=== PATIENT | male | born 1960 | race Caucasian/White ===

== ENCOUNTER 2018-01-07 21:43 | Inpatient (IN) | payer OTHER ==
[~2018-01-07] VITALS: Ht 175.3 cm; Wt 108.1 kg
[~2018-01-07 21:43] MED LIST: CLON-514 PO; OXYC30TA88 PO; TRAZ-146 PO; [UNRECOGNIZED DRUG - REMARK]
[2018-01-07] MEDS ORDERED: metoclopramide 5 mg/ml inj IV ONE (23:20)
[2018-01-07] MEDS ORDERED: morphine 4 MG/ML inj SYRINge IV ONE (23:20)
[2018-01-08] VITALS (18 sets, daily range): BP systolic 106–154; BP diastolic 49–81
[2018-01-08] MEDS ORDERED: propofol 10mg/ml 20ml vial IV ONE (00:30)
[2018-01-08] MEDS ORDERED: METOPROLOL (01:50)
[2018-01-08] MEDS ORDERED: DULO60CA45 PO (02:25)
[2018-01-08] MEDS ORDERED: ATOR20TA PO (02:25)
[2018-01-08] MEDS ORDERED: ASPI-611 PO (02:25)
[2018-01-08] MEDS ORDERED: normal saline 1000ml 1,000 ML IV SCH (03:06)
[2018-01-08] MEDS ORDERED: acetaminophen 325mg tablet PO PRN ×2 (03:10)
[2018-01-08] MEDS ORDERED: bisacodyl 10mg suppository rectal RC PRN (03:10)
[2018-01-08] MEDS ORDERED: HYDROcodone/acetaminophen 10/325mg tab PO PRN ×2 (03:10→07:55)
[2018-01-08] MEDS ORDERED: morphine 4 MG/ML inj SYRINge IV PRN ×2 (03:10)
[2018-01-08] MEDS ORDERED: HYDROcodone/acetaminophen 5mg/325mg tablet PO PRN (03:10)
[2018-01-08] MEDS ORDERED: mag hydrox/Alum hydrox/simeth 30ml oral suspension PO PRN (03:10)
[2018-01-08] MEDS ORDERED: acetaminophen 650mg rectal suppository RC PRN (03:10)
[2018-01-08] MEDS ORDERED: ondansetron/PF 4mg/2ml inj IV PRN ×2 (03:10→08:15)
[2018-01-08] MEDS ORDERED: HYDROmorphone inj. 0.5 MG/0.5 ML DISP.SYRIN IV PRN ×3 (03:10→08:15)
[2018-01-08] MEDS ORDERED: magnesium hydroxide 30ml (MOM) UD suspension PO PRN (03:10)
[2018-01-08] MEDS ORDERED: metoclopramide 5 mg/ml inj IV PRN (03:10)
[2018-01-08] MEDS ORDERED: diphenhydrAMINE 50 mg/ml inj IV PRN (03:10)
[2018-01-08] MEDS ORDERED: diphenhydrAMINE 25mg capsule PO PRN (03:10)
[2018-01-08] MEDS ORDERED: METOPROLOL PO (04:15)
[2018-01-08] MEDS ORDERED: triamcinolone acetonide 40mg/ml inj ONE (07:12)
[2018-01-08] MEDS ORDERED: ROPIVAcaine 0.5% (5mg/ml) 30ml vial ONE (07:12)
[2018-01-08] MEDS ORDERED: BUPIVAcaine/PF 7.5mg/ml (0.75%) 10ml vial ONE (07:13)
[2018-01-08] MEDS ORDERED: fentaNYL/PF 50MCG/1 ML 2ML syringe ONE (07:17)
[2018-01-08] MEDS ORDERED: LIDOcaine 1%/PF 5ML 10 MG/ML VIAL ONE (07:18)
[2018-01-08] MEDS ORDERED: midazolam 2 mg/2 ml injection ONE ×2 (07:18→08:02)
[2018-01-08] MEDS ORDERED: propofol inj 20 ML IV ONE (07:18)
[2018-01-08] MEDS ORDERED: docusate sod 100mg capsule PO SCH (08:00)
[2018-01-08] MEDS ORDERED: ringers solution, lacted 1,000 ML IV SCH (08:12)
[2018-01-08] MEDS ORDERED: HYDROmorphone 1 mg/ml syringe ONE (08:22)
[2018-01-08] MEDS: HYDROmorphone 1 mg/ml syringe IV PRN ×5 (08:29→08:50)
[2018-01-08] MEDS ORDERED: oxyCODONE/APAP 10/325mg tablet PO ONE (10:10)
[2018-01-08] MEDS ORDERED: temazepam 15mg capsule PO PRN (21:00)
== END 2018-01-08 13:00 | disposition home or self-care (01) | DRG 561 ==
LOC: ER 21:44 → ED HOLD 01-08 03:06 → ORTHO 4S 01-08 04:00
PROVIDERS: ADMIT Family Medicine; ATTEND Family Medicine
PROC: 0RWJXJZ Revision of Synthetic Substitute in Right Shoulder Joint, External Approach (ICD-10-PCS; principal; 2018-01-08 07:31)
DX: T84.028A Dislocation of other internal joint prosthesis, initial encounter (principal); Z96.611 Presence of right artificial shoulder joint; I10 Essential (primary) hypertension; F32.9 Major depressive disorder, single episode, unspecified; F41.9 Anxiety disorder, unspecified; X58.XXXA Exposure to other specified factors, initial encounter; Z88.8 Allergy status to other drugs, medicaments and biological substances; Z79.82 Long term (current) use of aspirin; Z79.899 Other long term (current) drug therapy; Z85.89 Personal history of malignant neoplasm of other organs and systems; Y93.89 Activity, other specified; Y92.89 Other specified places as the place of occurrence of the external cause
CPT/HCPCS: 23650; 99285; Z7506; 73020; 73030; 76000; 87070; 99152; 99153; A4565; A4620; J1170; J2001; J2250; J2270; J2704; J2765; J2795; J3010; J3301; J3490; J7030; J7120; L3650

== ENCOUNTER 2018-01-14 14:51 | Inpatient (IN) | payer OTHER ==
[~2018-01-14] VITALS: Ht 175.3 cm; Wt 105.9 kg
[2018-01-14] VITALS (20 sets, daily range): BP systolic 97–153; BP diastolic 47–91
[~2018-01-14 14:51] MED LIST changes: +METOPROLOL PO; -[UNRECOGNIZED DRUG - REMARK]
[2018-01-14] MEDS ORDERED: vancomycin/NS 1 GM ADD-VANTAGE 250 ML IV ONE (15:25)
[2018-01-14] MEDS ORDERED: ceFAZolin 1GM/D5W- ADD-VANTAGE 50 ML IV SCH (16:00)
[2018-01-14] MEDS: ringers solution, lacted 1,000 ML IV SCH (16:06)
[2018-01-14] MEDS: oxyCODONE IR 5mg (immed. release) tablet PO PRN (16:07)
[2018-01-14 16:30] LABS: BASOPHILS % (AUTO) 0.4 % (0-1); EOSINOPHILS # (AUTO) 0.3 X10'3 (0-0.9); EOSINOPHILS % (AUTO) 4.9 % (0-6); HEMATOCRIT 34.9 % (42.0-52.0); LYMPHOCYTES # (AUTO) 1.4 X10'3 (1.1-4.8); LYMPHOCYTES % (AUTO) 25.3 % (21-51); MEAN CORPUSCULAR HEMOGLOBIN 30.7 PG (27.0-31.0); MEAN CORPUSCULAR HGB CONC 34.3 % (33.0-36.5); MEAN CORPUSCULAR VOLUME 89.7 FL (78-98); MEAN PLATELET VOLUME 6.4 FL (7.4-10.4); MONOCYTES # (AUTO) 0.6 X10'3 (0-0.9); MONOCYTES % (AUTO) 9.8 % (2-12); NEUTROPHILS # (AUTO) 3.4 X10'3 (1.8-7.7); NEUTROPHILS % (AUTO) 59.6 % (42-75); PLATELET COUNT 391 X10'3 (140-440); RED CELL DISTRIBUTION WIDTH 12.9 % (11.5-14.5); WHITE BLOOD COUNT 5.7 X10'3 (4.5-11.0)
[2018-01-14] MEDS ORDERED: vancomycin 1,000mg inj ONE (16:31)
[2018-01-14 16:44] LABS: ALANINE AMINOTRANSFERASE 19 U/L (12-78); ALBUMIN 3.1 G/DL (3.4-5.0); ALBUMIN/GLOBULIN RATIO 0.9 (1.1-1.5); ALKALINE PHOSPHATASE 98 IU/L (46-116); ANION GAP 7 (8-16); ASPARTATE AMINO TRANSFERASE 17 U/L (10-37); BILIRUBIN,TOTAL 0.3 MG/DL (0.1-1.0); BLOOD UREA NITROGEN 14 MG/DL (7-18); BUN/CREATININE RATIO 17.1 (5.4-32.0); CALCIUM 8.6 MG/DL (8.5-10.1); CHLORIDE 102 MMOL/L (99-107); CREATININE 0.82 MG/DL (0.60-1.10); GLUCOSE 95 MG/DL (70-104); SODIUM 138 MMOL/L (135-145); TOTAL CARBON DIOXIDE 28.6 MMOL/L (24-32); TOTAL PROTEIN 6.6 G/DL (6.4-8.2); eGFR > 90 ML/MIN
[2018-01-14] MEDS ORDERED: ringers solution, lacted 1,000 ML IV SCH (16:47)
[2018-01-14] MEDS ORDERED: proCHLORperazine 10 MG/2 ml inj IV PRN (16:50)
[2018-01-14] MEDS ORDERED: ondansetron/PF 4mg/2ml inj IV PRN ×2 (16:50→18:45)
[2018-01-14] MEDS ORDERED: meperidine/PF 25mg/ml syringe IV PRN ×3 (16:50)
[2018-01-14] MEDS ORDERED: morphine 4 MG/ML inj SYRINge IV PRN ×2 (16:50)
[2018-01-14] MEDS ORDERED: sevoflurane 250ml liquid IH ONE (16:51)
[2018-01-14] MEDS ORDERED: fentaNYL /PF 50mcg/ml 5ml ampule ONE (16:55)
[2018-01-14] MEDS ORDERED: midazolam 2 mg/2 ml injection ONE (16:55)
[2018-01-14] MEDS ORDERED: ketorolac trometh. 30mg/ml inj. ONE (16:56)
[2018-01-14] MEDS ORDERED: ROPIVAcaine 0.5% (5mg/ml) 30ml vial ONE (16:56)
[2018-01-14] MEDS ORDERED: propofol inj 20 ML IV ONE (17:08)
[2018-01-14] MEDS ORDERED: rocuronium 10mg/ml inj IV ONE (17:08)
[2018-01-14] MEDS ORDERED: TRANEXAMIC ACID IV ONE ×4 (17:20)
[2018-01-14] MEDS ORDERED: NORMAL SALINE IV ONE ×4 (17:20)
[2018-01-14] MEDS ORDERED: fentaNYL/PF 50MCG/1 ML 2ML syringe ONE (17:40)
[2018-01-14] MEDS ORDERED: diphenhydrAMINE 25mg capsule PO PRN ×2 (18:45)
[2018-01-14] MEDS ORDERED: acetaminophen 325mg tablet PO PRN (18:45)
[2018-01-14] MEDS ORDERED: bisacodyl 10mg suppository rectal RC PRN (18:45)
[2018-01-14] MEDS ORDERED: magnesium hydroxide 30ml (MOM) UD suspension PO PRN (18:45)
[2018-01-14] MEDS ORDERED: HYDROmorphone 1 mg/ml syringe IV PRN ×2 (18:45)
[2018-01-14] MEDS: ketorolac tromethamine 15mg/ml inj. IV SCH (19:58)
[2018-01-14] MEDS ORDERED: vancomycin/NS 1 GM ADD-VANTAGE 250 ML IV SCH (20:00)
[2018-01-14] MEDS: potassium cl 20mEq in 1/2 NS 1,000 ML IV SCH (20:40)
[2018-01-14] MEDS ORDERED: sennosides 8.6mg tablet PO SCH (21:00)
[2018-01-14] MEDS: acetaminophen 325mg tablet PO SCH (21:05)
[2018-01-14] MEDS: gabapentin 300mg capsule PO SCH (21:06)
[2018-01-14] MEDS ORDERED: tranexamic acid inj. 1,060 MG in normal saline 100ml IV soln 100 ML IV ONE (22:00)
[2018-01-14] MEDS: clonazePAM 1mg tablet PO SCH (22:25)
[2018-01-15] MEDS: ceFAZolin 1GM/D5W- ADD-VANTAGE 50 ML IV SCH ×2 (00:26→08:46)
[2018-01-15] MEDS: ringers solution, lacted 1,000 ML IV SCH (01:25)
[2018-01-15 02:00] VITALS: BP 91/47
[2018-01-15] MEDS: ketorolac tromethamine 15mg/ml inj. IV SCH ×2 (02:36→08:46)
[2018-01-15] MEDS: potassium cl 20mEq in 1/2 NS 1,000 ML IV SCH ×2 (02:43→04:37)
[2018-01-15] MEDS: acetaminophen 325mg tablet PO SCH ×2 (02:46→08:48)
[2018-01-15] MEDS: oxyCODONE IR 5mg (immed. release) tablet PO PRN ×2 (02:55→08:46)
[2018-01-15 06:00] VITALS: BP 121/62
[2018-01-15 06:29] LABS: BASOPHILS % (AUTO) 0.4 % (0-1); EOSINOPHILS # (AUTO) 0.3 X10'3 (0-0.9); EOSINOPHILS % (AUTO) 5.2 % (0-6); HEMATOCRIT 30.5 % (42.0-52.0); HEMOGLOBIN 10.5 g/dl (14.0-17.9); LYMPHOCYTES % (AUTO) 19.7 % (21-51); MEAN CORPUSCULAR HEMOGLOBIN 30.9 PG (27.0-31.0); MEAN CORPUSCULAR HGB CONC 34.3 % (33.0-36.5); MEAN CORPUSCULAR VOLUME 89.9 FL (78-98); MEAN PLATELET VOLUME 6.4 FL (7.4-10.4); MONOCYTES # (AUTO) 0.6 X10'3 (0-0.9); MONOCYTES % (AUTO) 12.5 % (2-12); NEUTROPHILS # (AUTO) 3.1 X10'3 (1.8-7.7); NEUTROPHILS % (AUTO) 62.2 % (42-75); PLATELET COUNT 318 X10'3 (140-440); RED BLOOD COUNT 3.39 X10'6 (4.70-6.10); RED CELL DISTRIBUTION WIDTH 13.3 % (11.5-14.5); WHITE BLOOD COUNT 4.9 X10'3 (4.5-11.0)
[2018-01-15 06:46] LABS: ANION GAP 4 (8-16); CHLORIDE 109 MMOL/L (99-107); POTASSIUM 3.7 MMOL/L (3.5-5.1); SODIUM 141 MMOL/L (135-145); TOTAL CARBON DIOXIDE 28.4 MMOL/L (24-32)
[2018-01-15] MEDS ORDERED: aspirin 325mg tablet PO SCH (08:30)
[2018-01-15] MEDS: gabapentin 300mg capsule PO SCH (08:46)
[2018-01-15] MEDS: clonazePAM 1mg tablet PO SCH (08:46)
[2018-01-15] MEDS ORDERED: celeCOXIB 100mg capsule PO SCH (20:00)
[2018-01-16] MEDS ORDERED: acetaminophen 325mg tablet PO PRN (18:45)
== END 2018-01-15 10:43 | disposition home or self-care (01) | DRG 483 ==
LOC: ORTHO 4S 14:51
PROVIDERS: ADMIT Orthopaedic Surgery; ATTEND Orthopaedic Surgery
PROC: 0RPJ0JZ Removal of Synthetic Substitute from Right Shoulder Joint, Open Approach (ICD-10-PCS; 2018-01-14)
PROC: 0RRJ00Z Replacement of Right Shoulder Joint with Reverse Ball and Socket Synthetic Substitute, Open Approach (ICD-10-PCS; principal; 2018-01-14 16:51)
DX: T84.028A Dislocation of other internal joint prosthesis, initial encounter (principal); D62 Acute posthemorrhagic anemia; K21.9 Gastro-esophageal reflux disease without esophagitis; F32.9 Major depressive disorder, single episode, unspecified; F41.9 Anxiety disorder, unspecified; I25.119 Atherosclerotic heart disease of native coronary artery with unspecified angina pectoris; M19.011 Primary osteoarthritis, right shoulder; Y83.8 Other surgical procedures as the cause of abnormal reaction of the patient, or of later complication, without mention of misadventure at the time of the procedure; Z96.611 Presence of right artificial shoulder joint; Z79.899 Other long term (current) drug therapy; Y92.89 Other specified places as the place of occurrence of the external cause
CPT/HCPCS: 36415; 80051; 80053; 85025; 87070; 87075; 97110; 97162; 97530; A6255; A7000; J0690; J1170; J1885; J2175; J2250; J2704; J2795; J3010; J3370; J7030; J7040; J7120

== ENCOUNTER 2018-01-18 11:11 | Inpatient (IN) | payer OTHER, MEDICARE ==
[~2018-01-18] VITALS: Ht 175.3 cm; Wt 105.0 kg
[2018-01-18 12:26] LABS: BASOPHILS % (AUTO) 0.6 % (0-1); EOSINOPHILS # (AUTO) 0.2 X10'3 (0-0.9); EOSINOPHILS % (AUTO) 4.3 % (0-6); HEMATOCRIT 36.1 % (42.0-52.0); HEMOGLOBIN 12.2 g/dl (14.0-17.9); LYMPHOCYTES % (AUTO) 18.5 % (21-51); MEAN CORPUSCULAR HEMOGLOBIN 30.8 PG (27.0-31.0); MEAN CORPUSCULAR HGB CONC 33.8 % (33.0-36.5); MEAN CORPUSCULAR VOLUME 91.1 FL (78-98); MEAN PLATELET VOLUME 7.1 FL (7.4-10.4); MONOCYTES # (AUTO) 0.8 X10'3 (0-0.9); MONOCYTES % (AUTO) 14.1 % (2-12); NEUTROPHILS # (AUTO) 3.5 X10'3 (1.8-7.7); NEUTROPHILS % (AUTO) 62.5 % (42-75); PLATELET COUNT 352 X10'3 (140-440); RED BLOOD COUNT 3.97 X10'6 (4.70-6.10); RED CELL DISTRIBUTION WIDTH 13.1 % (11.5-14.5); WHITE BLOOD COUNT 5.5 X10'3 (4.5-11.0)
[2018-01-18 12:39] LABS: PARTIAL THROMBOPLASTIN TIME 31 SECONDS (22-32)
[2018-01-18] MEDS ORDERED: vancomycin/NS 1 GM ADD-VANTAGE 250 ML IV ONE (12:55)
[2018-01-18] MEDS ORDERED: epiNEPHrine inj 0.3 MG in LIDOcaine 1% 30ml vial 29.7 ML IJ ONE ×4 (12:55)
[2018-01-18 12:56] LABS: ALANINE AMINOTRANSFERASE 17 U/L (12-78); ALBUMIN 3.1 G/DL (3.4-5.0); ALBUMIN/GLOBULIN RATIO 0.8 (1.1-1.5); ALKALINE PHOSPHATASE 98 IU/L (46-116); ANION GAP 9 (8-16); ASPARTATE AMINO TRANSFERASE 14 U/L (10-37); BILIRUBIN,TOTAL 0.3 MG/DL (0.1-1.0); BLOOD UREA NITROGEN 14 MG/DL (7-18); BUN/CREATININE RATIO 18.7 (5.4-32.0); CALCIUM 8.8 MG/DL (8.5-10.1); CHLORIDE 103 MMOL/L (99-107); CREATININE 0.75 MG/DL (0.60-1.10); GLUCOSE 116 MG/DL (70-104); SODIUM 138 MMOL/L (135-145); TOTAL CARBON DIOXIDE 25.8 MMOL/L (24-32); TOTAL PROTEIN 7.1 G/DL (6.4-8.2); eGFR > 90 ML/MIN
[2018-01-18] MEDS ORDERED: LIDOcaine 0.5% W/epiNEPHrine 1:200,000 50ml vial IJ ONE (13:00)
[2018-01-18] MEDS ORDERED: LIDOcaine 1% w/EPI 1:100,000 30ml vial (MDV) IJ ONE (13:05)
[2018-01-18] MEDS ORDERED: ondansetron/PF 4mg/2ml inj IV PRN (14:40)
[2018-01-18] MEDS ORDERED: diphenhydrAMINE 25mg capsule PO PRN ×2 (14:40)
[2018-01-18] MEDS ORDERED: HYDROmorphone 1 mg/ml syringe IV PRN (14:40)
[2018-01-18] MEDS ORDERED: oxyCODONE IR 5mg (immed. release) tablet PO PRN (14:40)
[2018-01-18] MEDS ORDERED: bisacodyl 10mg suppository rectal RC PRN (14:40)
[2018-01-18] MEDS ORDERED: acetaminophen 325mg tablet PO PRN (14:40)
[2018-01-18] MEDS ORDERED: magnesium hydroxide 30ml (MOM) UD suspension PO PRN (14:40)
[2018-01-18 14:58] LABS: BFAPPEAR BLOODY
[2018-01-18 14:59] LABS: BFCOLOR RED; BFVOLUME 3 ML
[2018-01-18 15:30] LABS: LYMPHOCYTES,BODY FLUID 5 %; MONOCYTES,BODY FLUID 2 %; NEUTROPHILS,BODY FLUID 93 %
[2018-01-18 15:31] LABS: BF WBC COUNT 5470 /CU MM (0-1000)
[2018-01-18 15:32] LABS: BF RBC COUNT 195000 /CU MM
[2018-01-18] MEDS: HYDROmorphone 1 mg/ml syringe IV PRN ×2 (15:58→23:01)
[2018-01-18] MEDS ORDERED: oxyCODONE IR 5mg (immed. release) tablet PO ONE (17:55)
[2018-01-18] MEDS ORDERED: vancomycin/NS 1 GM ADD-VANTAGE 250 ML IV SCH (20:00)
[2018-01-18] MEDS: clonazePAM 1mg tablet PO SCH (20:41)
[2018-01-18] MEDS: acetaminophen 325mg tablet PO SCH (20:41)
[2018-01-18] MEDS: ketorolac tromethamine 15mg/ml inj. IV SCH (20:41)
[2018-01-18] MEDS: gabapentin 300mg capsule PO SCH (20:42)
[2018-01-18] MEDS: traZODone 50mg tablet PO SCH (20:42)
[2018-01-18] MEDS: OLANZapine 5mg rapidly disint. tablet PO SCH (20:42)
[2018-01-18] MEDS: sennosides 8.6mg tablet PO SCH (20:42)
[2018-01-18 22:00] VITALS: BP 132/72
[2018-01-18] MEDS: oxyCODONE IR 5mg (immed. release) tablet PO PRN (22:09)
[2018-01-18] MEDS: potassium cl 20mEq in 1/2 NS 1,000 ML IV SCH (22:39)
[2018-01-19] MEDS: acetaminophen 325mg tablet PO SCH ×4 (02:13→19:57)
[2018-01-19] MEDS: ketorolac tromethamine 15mg/ml inj. IV SCH ×3 (02:14→13:43)
[2018-01-19] MEDS: oxyCODONE IR 5mg (immed. release) tablet PO PRN ×4 (02:17→17:56)
[2018-01-19 06:00] VITALS: BP 102/62
[2018-01-19 06:07] LABS: HEMATOCRIT 32.4 % (42.0-52.0); MEAN CORPUSCULAR HEMOGLOBIN 30.3 PG (27.0-31.0); MEAN CORPUSCULAR HGB CONC 33.8 % (33.0-36.5); MEAN CORPUSCULAR VOLUME 89.7 FL (78-98); MEAN PLATELET VOLUME 7.1 FL (7.4-10.4); PLATELET COUNT 303 X10'3 (140-440); RED BLOOD COUNT 3.62 X10'6 (4.70-6.10); RED CELL DISTRIBUTION WIDTH 13.3 % (11.5-14.5); WHITE BLOOD COUNT 2.6 X10'3 (4.5-11.0)
[2018-01-19 06:32] LABS: ANION GAP 6 (8-16); CHLORIDE 107 MMOL/L (99-107); POTASSIUM 4.1 MMOL/L (3.5-5.1); SODIUM 142 MMOL/L (135-145); TOTAL CARBON DIOXIDE 29.2 MMOL/L (24-32)
[2018-01-19] MEDS: potassium cl 20mEq in 1/2 NS 1,000 ML IV SCH ×3 (06:39→22:39)
[2018-01-19 07:41] LABS: BASOPHILS % (MANUAL) 1 % (0-1); EOSINOPHILS % (MANUAL) 3 % (0-6); LYMPHOCYTES % (MANUAL) 37 % (21-51); MONOCYTES % (MANUAL) 15 % (2-12); NEUTROPHILS % (MANUAL) 44 % (42-75); PLATELET ESTIMATE NORMAL; TOTAL CELLS COUNTED 100
[2018-01-19] MEDS ORDERED: CLON2TAB PO (08:09)
[2018-01-19] MEDS ORDERED: OLAN10TA3 PO (08:09)
[2018-01-19] MEDS ORDERED: TRAZ-146 PO (08:09)
[2018-01-19] MEDS ORDERED: OXYC-658 PO (08:09)
[2018-01-19] MEDS: OLANZapine 5mg rapidly disint. tablet PO SCH ×2 (09:18→19:55)
[2018-01-19] MEDS: aspirin 325mg tablet PO SCH (09:18)
[2018-01-19] MEDS: gabapentin 300mg capsule PO SCH ×3 (09:18→19:55)
[2018-01-19] MEDS: clonazePAM 1mg tablet PO SCH ×2 (09:19→19:57)
[2018-01-19] MEDS: HYDROmorphone 1 mg/ml syringe IV PRN ×2 (10:56→16:57)
[2018-01-19 18:00] VITALS: BP 114/58
[2018-01-19] MEDS: traZODone 50mg tablet PO SCH (19:54)
[2018-01-19] MEDS: celeCOXIB 100mg capsule PO SCH (19:55)
[2018-01-19] MEDS: sennosides 8.6mg tablet PO SCH (19:55)
[2018-01-19 22:00] VITALS: BP 101/56
[2018-01-20] MEDS: acetaminophen 325mg tablet PO SCH ×3 (01:09→16:27)
[2018-01-20] MEDS: oxyCODONE IR 5mg (immed. release) tablet PO PRN ×4 (02:25→16:28)
[2018-01-20 05:00] VITALS: BP 123/66
[2018-01-20 05:53] LABS: BASOPHILS % (AUTO) 0.6 % (0-1); EOSINOPHILS # (AUTO) 0.3 X10'3 (0-0.9); EOSINOPHILS % (AUTO) 9.2 % (0-6); HEMATOCRIT 36.1 % (42.0-52.0); HEMOGLOBIN 12.1 g/dl (14.0-17.9); LYMPHOCYTES # (AUTO) 1.2 X10'3 (1.1-4.8); LYMPHOCYTES % (AUTO) 34.2 % (21-51); MEAN CORPUSCULAR HEMOGLOBIN 30.5 PG (27.0-31.0); MEAN CORPUSCULAR HGB CONC 33.6 % (33.0-36.5); MEAN CORPUSCULAR VOLUME 90.9 FL (78-98); MEAN PLATELET VOLUME 6.9 FL (7.4-10.4); MONOCYTES # (AUTO) 0.7 X10'3 (0-0.9); MONOCYTES % (AUTO) 18.9 % (2-12); NEUTROPHILS # (AUTO) 1.3 X10'3 (1.8-7.7); NEUTROPHILS % (AUTO) 37.1 % (42-75); PLATELET COUNT 331 X10'3 (140-440); RED BLOOD COUNT 3.97 X10'6 (4.70-6.10); RED CELL DISTRIBUTION WIDTH 13.5 % (11.5-14.5); WHITE BLOOD COUNT 3.5 X10'3 (4.5-11.0)
[2018-01-20] MEDS: potassium cl 20mEq in 1/2 NS 1,000 ML IV SCH (06:39)
[2018-01-20] MEDS: celeCOXIB 100mg capsule PO SCH ×2 (07:59→19:22)
[2018-01-20] MEDS: clonazePAM 1mg tablet PO SCH ×2 (08:00→19:23)
[2018-01-20] MEDS: gabapentin 300mg capsule PO SCH ×3 (08:00→20:50)
[2018-01-20] MEDS: OLANZapine 5mg rapidly disint. tablet PO SCH ×2 (08:00→19:23)
[2018-01-20] MEDS: aspirin 325mg tablet PO SCH (08:00)
[2018-01-20 10:00] VITALS: BP 128/56
[2018-01-20 10:14] LABS: TOTAL CELLS COUNTED 100
[2018-01-20 10:15] LABS: PLATELET ESTIMATE NORMAL
[2018-01-20] MEDS ORDERED: acetaminophen 325mg tablet PO PRN (14:40)
[2018-01-20 18:00] VITALS: BP 136/62
[2018-01-20] MEDS ORDERED: mag hydrox/Alum hydrox/simeth 30ml oral suspension PO ONE (20:00)
[2018-01-20] MEDS: sennosides 8.6mg tablet PO SCH (20:50)
[2018-01-20] MEDS: traZODone 50mg tablet PO SCH (20:50)
[2018-01-20 22:00] VITALS: BP 126/71
[2018-01-21] MEDS: oxyCODONE IR 5mg (immed. release) tablet PO PRN ×2 (02:41→09:30)
[2018-01-21 05:00] VITALS: BP 138/74
[2018-01-21 05:56] LABS: BASOPHILS % (AUTO) 0.5 % (0-1); EOSINOPHILS # (AUTO) 0.3 X10'3 (0-0.9); EOSINOPHILS % (AUTO) 6.7 % (0-6); HEMATOCRIT 33.7 % (42.0-52.0); HEMOGLOBIN 11.5 g/dl (14.0-17.9); LYMPHOCYTES # (AUTO) 1.3 X10'3 (1.1-4.8); LYMPHOCYTES % (AUTO) 32.3 % (21-51); MEAN CORPUSCULAR HEMOGLOBIN 30.6 PG (27.0-31.0); MEAN PLATELET VOLUME 7.1 FL (7.4-10.4); MONOCYTES # (AUTO) 0.6 X10'3 (0-0.9); MONOCYTES % (AUTO) 14.6 % (2-12); NEUTROPHILS # (AUTO) 1.9 X10'3 (1.8-7.7); NEUTROPHILS % (AUTO) 45.9 % (42-75); PLATELET COUNT 335 X10'3 (140-440); RED BLOOD COUNT 3.75 X10'6 (4.70-6.10); RED CELL DISTRIBUTION WIDTH 13.4 % (11.5-14.5); WHITE BLOOD COUNT 4.1 X10'3 (4.5-11.0)
[2018-01-21] MEDS ORDERED: HYDROmorphone 2mg tablet PO PRN (06:40)
[2018-01-21] MEDS ORDERED: CLIN300C70 PO (08:35)
[2018-01-21] MEDS: aspirin 325mg tablet PO SCH (09:30)
[2018-01-21] MEDS ORDERED: VANCOMYCIN LEVEL IV ONE (09:30)
[2018-01-21] MEDS: clonazePAM 1mg tablet PO SCH (09:31)
[2018-01-21] MEDS: gabapentin 300mg capsule PO SCH (09:32)
[2018-01-21] MEDS: celeCOXIB 100mg capsule PO SCH (09:32)
[2018-01-21] MEDS: OLANZapine 5mg rapidly disint. tablet PO SCH (09:32)
== END 2018-01-21 10:45 | disposition home or self-care (01) | DRG 863 ==
LOC: ER 11:12 → ED HOLD 14:39 → EDBEDREQ 16:22 → ORTHO 4S 17:13
PROVIDERS: ADMIT Orthopaedic Surgery; ATTEND Orthopaedic Surgery
PROC: 0R9J3ZX Drainage of Right Shoulder Joint, Percutaneous Approach, Diagnostic (ICD-10-PCS; principal; 2018-01-18)
DX: T81.4XXA Infection following a procedure, initial encounter (principal); L03.113 Cellulitis of right upper limb; M96.840 Postprocedural hematoma of a musculoskeletal structure following a musculoskeletal system procedure; K21.9 Gastro-esophageal reflux disease without esophagitis; F41.9 Anxiety disorder, unspecified; F32.9 Major depressive disorder, single episode, unspecified; I25.10 Atherosclerotic heart disease of native coronary artery without angina pectoris; D64.9 Anemia, unspecified; Y83.8 Other surgical procedures as the cause of abnormal reaction of the patient, or of later complication, without mention of misadventure at the time of the procedure; Z88.8 Allergy status to other drugs, medicaments and biological substances; Z79.899 Other long term (current) drug therapy; Y92.89 Other specified places as the place of occurrence of the external cause
CPT/HCPCS: 36415; 73030; 80051; 80053; 80202; 83605; 84145; 85025; 85610; 85651; 85730; 86140; 87040; 87070; 87077; 87186; 89051; 96365; 99285; A6258; A6449; J0171; J1170; J1885; J3370; J3490

== ENCOUNTER 2020-09-18 20:30 | Emergency (ER) | payer MEDICARE, OTHER ==
[~2020-09-18] VITALS: Ht 175.3 cm; Wt 88.9 kg
[~2020-09-18 20:30] MED LIST changes: -CLON-514 PO; +CLON2TAB PO; -METOPROLOL PO; +OLAN10TA3 PO; +OXYC-658 PO; -OXYC30TA88 PO; -TRAZ-146 PO; +TRAZ-256 PO
--- NOTE | 2020-09-18 21:02 | NUR ---
Patient reports englarged prostate and has been seeing primary care. Patient reports the pain has become intolerable tonight. Patient reports difficulty peeing. Patient reports going to [facility] a couple days ago and left AMA. Patient is very anxious, irratic, and all over the place. patient is GCS 15. Patient reports voiding appoximately 6-7 hours ago with just dribble. RN examined area and no swelling note.
[2020-09-18] MEDS ORDERED: OLANZapine 2.5MG tablet PO STA (22:23)
[2020-09-18] MEDS ORDERED: LORazepam 1 MG tablet PO ONE (22:25)
[2020-09-18 22:41] LABS: BASOPHILS % (AUTO) 0.4 % (0-1); EOSINOPHILS # (AUTO) 0.1 X10'3 (0-0.9); EOSINOPHILS % (AUTO) 0.8 % (0-6); HEMATOCRIT 47.7 % (42.0-52.0); HEMOGLOBIN 15.8 g/dl (14.0-17.9); LYMPHOCYTES % (AUTO) 22.3 % (21-51); MEAN CORPUSCULAR HEMOGLOBIN 31.1 PG (27.0-31.0); MEAN CORPUSCULAR HGB CONC 33.2 g/dL (33.0-36.5); MEAN CORPUSCULAR VOLUME 93.6 FL (78-98); MEAN PLATELET VOLUME 7.9 FL (7.4-10.4); MONOCYTES # (AUTO) 1.1 X10'3 (0-0.9); MONOCYTES % (AUTO) 12.2 % (2-12); NEUTROPHILS # (AUTO) 5.6 X10'3 (1.8-7.7); NEUTROPHILS % (AUTO) 64.3 % (42-75); PLATELET COUNT 278 X10'3 (140-440); RED BLOOD COUNT 5.09 X10'6 (4.70-6.10); RED CELL DISTRIBUTION WIDTH 13.6 % (11.5-14.5); WHITE BLOOD COUNT 8.8 X10'3 (4.5-11.0)
--- NOTE | 2020-09-18 22:48 | NUR ---
patient has rambling speech upon arrival to ED [facility] , but is otherwise cooperative.
[2020-09-18 22:54] LABS: ALANINE AMINOTRANSFERASE 60 U/L (12-78); ALBUMIN 4.1 G/DL (3.4-5.0); ALBUMIN/GLOBULIN RATIO 1.2 (1.1-1.5); ALKALINE PHOSPHATASE 127 IU/L (46-116); ANION GAP 10 (8-16); ASPARTATE AMINO TRANSFERASE 53 U/L (10-37); BILIRUBIN,TOTAL 0.4 MG/DL (0.1-1.0); BLOOD UREA NITROGEN 21 MG/DL (7-18); BUN/CREATININE RATIO 22.3 (5.4-32.0); CALCIUM 9.2 MG/DL (8.5-10.1); CHLORIDE 104 MMOL/L (99-107); CREATININE 0.94 MG/DL (0.60-1.10); ETHANOL < 0.010 GM/DL (0.0-0.010); GLUCOSE 124 MG/DL (70-104); SODIUM 141 MMOL/L (135-145); TOTAL CARBON DIOXIDE 27.5 MMOL/L (24-32); TOTAL PROTEIN 7.4 G/DL (6.4-8.2); eGFR 82 ML/MIN
[2020-09-18] MEDS ORDERED: diphenhydrAMINE 50 mg/ml inj IM ONE (23:25)
[2020-09-18] MEDS ORDERED: LORazepam 2 mg/ml vial IM ONE (23:25)
--- NOTE | 2020-09-18 23:42 | NUR ---
Patient's packet was sent to [facility]. UA still pending and will need to be copied and sent to [facility].
--- NOTE | 2020-09-19 01:46 | NUR ---
transferred to main ED w/out difficulty
--- NOTE | 2020-09-19 03:24 | NUR ---
spoke to Lester FISHER and he was not concered about aquiring urine via straight cath. Patient states he has difficulty urinating. Patient continues to sleep undisturbed.
[2020-09-19] MEDS ORDERED: haloperidol lactate 5mg/ml inj IM ONE (04:40)
[2020-09-19] MEDS ORDERED: ondansetron 4mg rapidly disintigrating tab PO ONE (04:40)
[2020-09-19 04:44] LABS: URINE AMPHETAMINE SCREEN NEGATIVE (Neg); URINE BARBITUATE SCREEN NEGATIVE (Neg); URINE BENZODIAZEPINES SCREEN POSITIVE (Neg); URINE CANNABINOID SCREEN POSITIVE (Neg); URINE COCAINE SCREEN NEGATIVE (Neg); URINE METHADONE SCREEN NEGATIVE (Neg); URINE OPIATE SCREEN NEGATIVE (Neg); URINE PHENCYCLIDINE SCREEN NEGATIVE (Neg)
--- NOTE | 2020-09-19 07:26 | NUR ---
pt unable to state why he is here. pt first stated that is scrotum hurt and that brought him in, then he stated that he "hurts all over and I have flashes in my eye." Pt is disorganized.
[2020-09-19] MEDS ORDERED: DIAZ10TA4 PO (07:35)
[2020-09-19] MEDS ORDERED: METO25TA6 PO (08:14)
[2020-09-19] MEDS ORDERED: DILT30TA12 PO (08:17)
[2020-09-19] MEDS ORDERED: DICY20TA17 PO (08:19)
--- NOTE | 2020-09-19 08:35 | NUR ---
[facility] is here to evaluate patient.
[2020-09-19] MEDS ORDERED: diltiazem 30mg tablet PO SCH (09:01)
[2020-09-19] MEDS: diltiazem 30mg tablet PO SCH ×4 (10:31→20:44)
[2020-09-19] MEDS: dicyclomine 10 MG capsule PO SCH ×3 (10:31→20:44)
--- NOTE | 2020-09-19 11:20 | NUR ---
pt is in and out of sleep, no needs identified at this time. Pt was placed on 5150 and was initially upset but was able to calm down when it was explained that he will be receiving help getting back on his psych meds.
--- NOTE | 2020-09-19 13:26 | NUR ---
pt is lying in bed, just finished lunch. pt was up to use the restroom, has a steady gait. Pt has no complaints at this time.
--- NOTE | 2020-09-19 14:34 | NUR ---
pt is up to the restroom again, pt denies having GI issues but is urinating frequently, per the patient. Pt is friendly and talkative, enjoys talking about surfing when he was younger. Pt is open to going to a mental health facility to get his psych meds in order.
--- NOTE | 2020-09-19 15:32 | NUR ---
pt is asleep, no s/s of distress noted.
[2020-09-19] MEDS ORDERED: acetaminophen 325mg tablet PO ONE (17:40)
--- NOTE | 2020-09-19 19:28 | NUR ---
Patient complaining of need to void but inability to do so. Multiple trips this shift to restroom without success this shift. Bladder scan reveals > [address] Trammell notified, new orders received. Patient updated on plan of care.
--- NOTE | 2020-09-19 19:59 | NUR ---
16 Sinhala hernandez placed without difficulty. >1,000 mls clear urine drained. UA sent. Patient states relief of discomfort.
[2020-09-19 20:10] LABS: CLARITY,URINE CLEAR (Clear); COLOR,URINE YELLOW (Yellow); GLUCOSE, URINE NEGATIVE (Neg); KETONES,URINE NEGATIVE (Neg); LEUKOCYTE ESTERASE ,URINE NEGATIVE (Neg); NITRITES, URINE NEGATIVE (Neg); OCCULT BLOOD,URINE NEGATIVE (Neg); PROTEIN,URINE NEGATIVE (Neg); UROBILINOGEN,URINE 0.2 E.U/dL (0.2-1.0)
[2020-09-19 20:11] LABS: UA COLLECTION TYPE FOLEY CATH
[2020-09-19] MEDS: tamsulosin 0.4mg capsule PO SCH (20:44)
--- NOTE | 2020-09-19 21:52 | NUR ---
[facility] will accept the patient in the morning. Pati will be reevaluated by their physician at that time.
--- NOTE | 2020-09-20 06:08 | NUR ---
: Consuelo Simon [phone].
--- NOTE | 2020-09-20 06:53 | NUR ---
Pt awake and resting on bed.
--- NOTE | 2020-09-20 08:36 | NUR ---
PT WAS GIVEN TOILETRIES AND WAS ADVISED TO CLEAN UP IN THE BATHROOM.
[2020-09-20] MEDS: diltiazem 30mg tablet PO SCH ×4 (08:41→20:19)
[2020-09-20] MEDS: dicyclomine 10 MG capsule PO SCH ×3 (08:41→20:19)
--- NOTE | 2020-09-20 09:00 | NUR ---
Pt remains calm and cooperative and currently denies needs.
--- NOTE | 2020-09-20 11:15 | NUR ---
TC TO , PER PATIENT REQUEST, AND MESSAGE LEFT FOR TO CALL BACK. PATIENT STATES THAT HE WANTS TO "CHECK ON HIS " AND "LET HER KNOW THAT HE IS DOING OK".
--- NOTE | 2020-09-20 13:23 | NUR ---
Per MD Toussaint, administer Olanzapin zydisk 10mg now, then begin pt on Olanzapine 10mg bid tonight.
[2020-09-20] MEDS ORDERED: OLANZapine 5mg rapidly disint. tablet PO ONE (13:30)
--- NOTE | 2020-09-20 15:00 | NUR ---
Pt educated on F/C and instructed on how to empty bag. Pt able to demonstrate ability to empty bag.
--- NOTE | 2020-09-20 16:12 | NUR ---
Pt laying on right side with eyes closed resting, effortless respirations observed.
--- NOTE | 2020-09-20 17:30 | NUR ---
Pt took 1300 Cardizem dose at 1500. Pt scheduled to take Cardizem at 1700 and 2100. Pt 1700 dose being held as pt to receive dose at 2100 and has only been 2 hours since last dose.
--- NOTE | 2020-09-20 18:33 | NUR ---
Report given to NOC AKIL Rust RN aware of 1700 Socrates held as pt to receive dose tonight at 2100.
--- NOTE | 2020-09-20 19:52 | NUR ---
The patient has beenr resting comfortably on his bed. He makes many physical symptom complaints. Currently he denies that he is having flashing lights. Stated he was seeing flashing lights every time his heart beat but he denies that now. He stated he has very high anxiety. His speech is fast and pressured with a flight of ideas. He denies that he is hearing voices or seeing things that are not there.
[2020-09-20] MEDS: olanzapine 10mg tablet PO SCH (20:19)
[2020-09-20] MEDS: tamsulosin 0.4mg capsule PO SCH (20:19)
--- NOTE | 2020-09-20 20:34 | NUR ---
The patient is calmer at this time. Reports gratitude for care. Took all of his HS medications. Snack given.
--- NOTE | 2020-09-20 21:30 | NUR ---
Tate oconnorrachel in ED - 09/21/20 at 0315 by JAYY The patient was seen by [facility]. The patient is unable to contract for safety at this time. [facility] will see in the morning and try and put a safety plan in place
--- NOTE | 2020-09-20 22:00 | NUR ---
The patient currently appears to be sleeping
--- NOTE | 2020-09-21 00:11 | NUR ---
The patient appears to be sleeping
--- NOTE | 2020-09-21 02:38 | NUR ---
The patient is awake and ambulating in front of the nursing station
--- NOTE | 2020-09-21 03:50 | NUR ---
The patient is resting on his bed but awake
--- NOTE | 2020-09-21 05:02 | NUR ---
The patient appears to be sleeping
[2020-09-21] MEDS ORDERED: acetaminophen 325mg tablet PO PRN (06:15)
--- NOTE | 2020-09-21 06:24 | NUR ---
hernandez dc and patient was able to void
--- NOTE | 2020-09-21 07:00 | NUR ---
pt is able to void after cath removed.
[2020-09-21] MEDS: olanzapine 10mg tablet PO SCH (07:54)
[2020-09-21] MEDS: diltiazem 30mg tablet PO SCH ×4 (07:54→17:48)
[2020-09-21] MEDS: dicyclomine 10 MG capsule PO SCH ×2 (07:54→15:49)
--- NOTE | 2020-09-21 08:08 | NUR ---
pt is eating breakfast
--- NOTE | 2020-09-21 09:00 | NUR ---
pt is resting
--- NOTE | 2020-09-21 10:19 | NUR ---
pt is laying in bed no issues at this time
--- NOTE | 2020-09-21 11:00 | NUR ---
PT IS RESTING NO ISSUES
--- NOTE | 2020-09-21 12:00 | NUR ---
PT IS TALKING WITH STAFF. NO CONCERNS
--- NOTE | 2020-09-21 13:00 | NUR ---
PT IS EATING LUNCH
--- NOTE | 2020-09-21 14:00 | NUR ---
PT IS SITTING IN BED. NO ISSUES AT THIS TIME
--- NOTE | 2020-09-21 15:05 | NUR ---
PT IS SLEEPING
--- NOTE | 2020-09-21 16:00 | NUR ---
PT IS TALKING WITH ANOTHER PATIENT
--- NOTE | 2020-09-21 17:00 | NUR ---
CARDIZEM AFTERNOON DOSE WAS GIVEN LATE. TOO SOON FOR 1700 DOSE.
--- NOTE | 2020-09-21 18:58 | NUR ---
The patient is hyperverbal, psychomotor agiatation, intrussive. He is accepting redirection. Speech volume is slightly elevated and rapid. He is aware that he will be transferred to [facility]. He is making bizarre statements.
[2020-09-21 19:33] VITALS: BP 167/92
[2020-09-21] MEDS ORDERED: FLO0.4C PO (19:41)
[2020-09-21] MEDS ORDERED: OLAN10TA3 PO (19:41)
== END 2020-09-21 19:39 | disposition home or self-care (01) ==
LOC: ER 20:31
DX: F31.9 Bipolar disorder, unspecified (principal); Z20.822 Contact with and (suspected) exposure to COVID-19; N50.812 Left testicular pain; N50.811 Right testicular pain; F41.9 Anxiety disorder, unspecified; Z85.9 Personal history of malignant neoplasm, unspecified; Z72.89 Other problems related to lifestyle; Z88.8 Allergy status to other drugs, medicaments and biological substances; Z79.899 Other long term (current) drug therapy
CPT/HCPCS: 96372; 99285; J1200; J1630; J2060; 36415; 51702; 80053; 80305; 80320; 81003; 85025; 87635; C9803

== ENCOUNTER 2020-10-14 13:09 | Emergency (ER) | payer MEDICARE ==
[~2020-10-14] VITALS: Ht 175.3 cm; Wt 98.6 kg
[~2020-10-14 13:09] MED LIST changes: -CLON2TAB PO; +DICY20TA17 PO; +DILT30TA12 PO; +FLO0.4C PO; +FLUT9.9S NS; +GABA600T13 PO; +LIDO700A47 TP; +LORA-269 PO; +LORA10TA65 PO; -OLAN10TA3 PO; -OXYC-658 PO; +PALI6TAB6 PO; +PANT40TA54 PO; -TRAZ-256 PO
[2020-10-14 13:52] LABS: BASOPHILS % (AUTO) 0.4 % (0-1); EOSINOPHILS % (AUTO) 0.7 % (0-6); LYMPHOCYTES # (AUTO) 1.3 X10'3 (1.1-4.8); LYMPHOCYTES % (AUTO) 19.4 % (21-51); MEAN CORPUSCULAR HGB CONC 33.3 g/dL (33.0-36.5); MONOCYTES # (AUTO) 0.8 X10'3 (0-0.9); MONOCYTES % (AUTO) 11.8 % (2-12); NEUTROPHILS # (AUTO) 4.4 X10'3 (1.8-7.7); NEUTROPHILS % (AUTO) 67.7 % (42-75); PLATELET COUNT 286 X10'3 (140-440); RED BLOOD COUNT 4.84 X10'6 (4.70-6.10); WHITE BLOOD COUNT 6.4 X10'3 (4.5-11.0)
[2020-10-14 14:02] LABS: ALANINE AMINOTRANSFERASE 32 U/L (12-78); ALBUMIN 3.7 G/DL (3.4-5.0); ALKALINE PHOSPHATASE 128 IU/L (46-116); ANION GAP 8 (8-16); ASPARTATE AMINO TRANSFERASE 15 U/L (10-37); BILIRUBIN,TOTAL 0.2 MG/DL (0.1-1.0); BLOOD UREA NITROGEN 21 MG/DL (7-18); BUN/CREATININE RATIO 25.9 (5.4-32.0); CHLORIDE 105 MMOL/L (99-107); CREATININE 0.81 MG/DL (0.60-1.10); GLUCOSE 100 MG/DL (70-104); POTASSIUM 3.9 MMOL/L (3.5-5.1); SODIUM 140 MMOL/L (135-145); TOTAL CARBON DIOXIDE 26.7 MMOL/L (24-32); TOTAL PROTEIN 7.4 G/DL (6.4-8.2); eGFR > 90 ML/MIN
[2020-10-14 19:12] VITALS: BP 162/105
== END 2020-10-14 19:41 | disposition home or self-care (01) ==
LOC: ER 13:10
DX: R07.89 Other chest pain (principal); R00.2 Palpitations; F41.9 Anxiety disorder, unspecified; F32.9 Major depressive disorder, single episode, unspecified; Z98.890 Other specified postprocedural states; Z72.89 Other problems related to lifestyle; Z88.8 Allergy status to other drugs, medicaments and biological substances; Z79.899 Other long term (current) drug therapy
CPT/HCPCS: 36415; 71045; 80053; 83880; 84484; 85025; 93005; 99285

== ENCOUNTER 2022-07-28 06:50 | Day surgery (SDC) | payer MEDICARE, OTHER, SELFPAY ==
[2022-07-19 16:09] LABS: BASOPHILS # (AUTO) 0.1 X10'3 (0-0.2); BASOPHILS % (AUTO) 0.8 % (0-1); EOSINOPHILS # (AUTO) 0.1 X10'3 (0-0.9); EOSINOPHILS % (AUTO) 1.2 % (0-6); LYMPHOCYTES # (AUTO) 1.8 X10'3 (1.1-4.8); LYMPHOCYTES % (AUTO) 23.7 % (21-51); MEAN CORPUSCULAR HEMOGLOBIN 32.3 PG (27.0-31.0); MEAN CORPUSCULAR HGB CONC 33.6 g/dL (33.0-36.5); MEAN CORPUSCULAR VOLUME 96.2 FL (78-98); MEAN PLATELET VOLUME 7.7 FL (7.4-10.4); MONOCYTES # (AUTO) 0.8 X10'3 (0-0.9); MONOCYTES % (AUTO) 10.3 % (2-12); PRE OP HEMATOCRIT 46.4 % (42.0-52.0); PRE OP HEMOGLOBIN 15.6 g/dL (14.0-17.9); PRE OP PLATELET COUNT 251 X10'3 (140-440); RED BLOOD COUNT 4.82 X10'6 (4.70-6.10); RED CELL DISTRIBUTION WIDTH 12.9 % (11.5-14.5)
[2022-07-19 16:39] LABS: ALBUMIN 3.9 G/DL (3.4-5.0); ALBUMIN/GLOBULIN RATIO 1.3 (1.1-1.5); ALKALINE PHOSPHATASE 98 IU/L (46-116); BLOOD UREA NITROGEN 17 MG/DL (7-18); CALCIUM 8.4 MG/DL (8.5-10.1); CHLORIDE 102 MMOL/L (99-107); CREATININE 0.74 MG/DL (0.60-1.10); PRE OP ALT 26 U/L (30-65); PRE OP ANION GAP 9 (8-16); PRE OP AST 16 U/L (10-37); PRE OP BILIRUB, TOTAL 0.5 MG/DL (0.0-1.0); PRE OP GLUCOSE 95 MG/DL (70-104); PRE OP POTASSIUM 4.1 MMOL/L (3.4-5.1); PRE OP SODIUM 136 MMOL/L (135-145); TOTAL CARBON DIOXIDE 25.4 MMOL/L (24-32); eGFR > 90 ML/MIN
[~2022-07-28] VITALS: Ht 175.3 cm; Wt 117.9 kg
[2022-07-28] VITALS (7 sets, daily range): BP systolic 130–151; BP diastolic 77–86
[~2022-07-28 06:50] MED LIST changes: -DICY20TA17 PO; -DILT30TA12 PO; -FLO0.4C PO; -FLUT9.9S NS; -GABA600T13 PO; -LIDO700A47 TP; -LORA-269 PO; -LORA10TA65 PO; -PALI6TAB6 PO; -PANT40TA54 PO; +ceFAZolin inj. 2,000 MG in dextrose 5%-water 100 ML IV ONE; +famotidine 20mg tablet PO ONE; +ringers solution, lacted 1,000 ML IV SCH
[2022-07-28] MEDS ORDERED: morphine 4 MG/ML inj SYRINge IV PRN (08:25)
[2022-07-28] MEDS ORDERED: proCHLORperazine 10 MG/2 ml inj IV PRN (08:25)
[2022-07-28] MEDS ORDERED: ringers solution, lacted 1,000 ML IV SCH (08:25)
[2022-07-28] MEDS ORDERED: ondansetron/PF 4mg/2ml inj IV PRN (08:25)
[2022-07-28] MEDS ORDERED: hydrALAZINE 20mg/ml inj. IV PRN (08:25)
[2022-07-28] MEDS ORDERED: labetalol 20mg/4ml (5mg/ml) syringe IV PRN (08:25)
[2022-07-28] MEDS ORDERED: acetaminophen 1,000mg/100ml IV 100 ML IV PRN (08:25)
[2022-07-28] MEDS ORDERED: morphine 2 MG/ML inj. syringe IV PRN (08:25)
[2022-07-28] MEDS ORDERED: meperidine/PF 25mg/ml syringe IV PRN ×3 (08:25)
[2022-07-28] MEDS ORDERED: LIDOcaine 0.5% (5mg/ml) 50ml vial ONE (10:31)
[2022-07-28] MEDS ORDERED: FENTANYL CITRATE/PF 50 MCG/1 ML VIAL ONE (10:33)
[2022-07-28] MEDS ORDERED: midazolam 1 mg/ML 2ml injection ONE (10:37)
[2022-07-28] MEDS ORDERED: BUPIVAcaine 0.5% inj/PF 30 ml vial IJ ONE (11:03)
[2022-07-28] MEDS ORDERED: propofol inj 20 ML IV ONE ×2 (11:18)
--- NOTE | 2022-07-28 11:27 | NUR ---
Received from OR via [facility], accompanied by Anesthesiologist DR ARGUELLO and report given by Anesthesiologist AND CYLINDER MACHINE OPERATOR PULP DRIER. RIGHT ELBOW W/PETROS WRAP COVERING INCISION/SPLINT CDI, ICE PACK APPLIED. FINGERS PWD, SKOOG OPERATOR 1-2 SECONDS. Addendum: 07/28/22 at 1232 by Indy Estes RN Amended: Links added.
--- NOTE | 2022-07-28 12:27 | NUR ---
SLING PLACED ON PT. PT UP AND ABLE TO AMBULATE SAFELY, DENIES PAIN. D/C INSTRUCTIONS GIVEN AND GONE OVER W/PT WHO VERBALIZED UNDERSTANDING. PT D/CD TO HOME VIA W/C TO PRIVATE VEHICLE W/O INCIDENT. Addendum: 07/28/22 at 1235 by Indy Estes RN Amended: Links added.
== END 2022-07-28 12:27 | disposition home or self-care (01) ==
LOC: PAS 06:50
PROVIDERS: ATTEND Orthopaedic Surgery Hand Surgery
DX: G56.21 Lesion of ulnar nerve, right upper limb (principal); Z79.899 Other long term (current) drug therapy; G47.30 Sleep apnea, unspecified; Z98.890 Other specified postprocedural states
CPT/HCPCS: 36415; 64718; 80053; 82948; 85025; 93005; A6222; J0690; J2250; J2704; J3010; J3490; J7030; J7060; J7120; S0020; Z7506; Z7508; Z7512; A4215; A4565; A6449

== ENCOUNTER 2022-12-18 07:00 | Day surgery (SDC) | payer OTHER ==
[2022-12-14 16:13] LABS: BASOPHILS % (AUTO) 0.6 % (0-1); EOSINOPHILS # (AUTO) 0.1 X10'3 (0-0.9); LYMPHOCYTES # (AUTO) 1.1 X10'3 (1.1-4.8); LYMPHOCYTES % (AUTO) 16.4 % (21-51); MEAN CORPUSCULAR HEMOGLOBIN 32.6 PG (27.0-31.0); MEAN CORPUSCULAR HGB CONC 34.2 g/dL (33.0-36.5); MEAN CORPUSCULAR VOLUME 95.3 FL (78-98); MEAN PLATELET VOLUME 7.6 FL (7.4-10.4); MONOCYTES # (AUTO) 0.6 X10'3 (0-0.9); MONOCYTES % (AUTO) 8.3 % (2-12); NEUTROPHILS # (AUTO) 5.1 X10'3 (1.8-7.7); NEUTROPHILS % (AUTO) 73.7 % (42-75); PRE OP HEMATOCRIT 43.4 % (42.0-52.0); PRE OP HEMOGLOBIN 14.9 g/dL (14.0-17.9); PRE OP PLATELET COUNT 250 X10'3 (140-440); RED BLOOD COUNT 4.56 X10'6 (4.70-6.10); RED CELL DISTRIBUTION WIDTH 12.8 % (11.5-14.5)
[2022-12-14 16:37] LABS: ALBUMIN 3.8 G/DL (3.4-5.0); ALBUMIN/GLOBULIN RATIO 1.3 (1.1-1.5); ALKALINE PHOSPHATASE 98 IU/L (46-116); BLOOD UREA NITROGEN 20 MG/DL (7-18); BUN/CREATININE RATIO 24.1 (10.0-20.0); CALCIUM 8.5 MG/DL (8.5-10.1); CHLORIDE 105 MMOL/L (99-107); CREATININE 0.83 MG/DL (0.60-1.10); PRE OP ALT 22 U/L (30-65); PRE OP ANION GAP 10 (8-16); PRE OP AST 16 U/L (10-37); PRE OP BILIRUB, TOTAL 0.4 MG/DL (0.0-1.0); PRE OP GLUCOSE 105 MG/DL (70-104); PRE OP POTASSIUM 3.8 MMOL/L (3.4-5.1); PRE OP SODIUM 140 MMOL/L (135-145); TOTAL CARBON DIOXIDE 25.4 MMOL/L (24-32); TOTAL PROTEIN 6.7 G/DL (6.4-8.2); eGFR > 90 ML/MIN
[~2022-12-18] VITALS: Ht 175.3 cm; Wt 120.0 kg
[~2022-12-18 07:00] MED LIST changes: +BUPIVAcaine/PF 2.5mg/ml (0.25%) 10ml vial ONE; +NO HOME MEDS; -ceFAZolin inj. 2,000 MG in dextrose 5%-water 100 ML IV ONE; +cefazolin 2gm/D5W 100mL 100 ML IV ONE; +clindamycin-Cleocin 900mg/D5W 50 ML IV ONE
[2022-12-18] MEDS ORDERED: LIDOcaine 1% 30ml preserv. free vial ONE (07:26)
[2022-12-18 07:30] VITALS: BP 131/79
[2022-12-18] MEDS ORDERED: fentaNYL/PF 50MCG/1 ML 2ML syringe ONE (10:14)
[2022-12-18] MEDS ORDERED: midazolam 1 mg/ML 2ml injection ONE (10:14)
[2022-12-18] MEDS ORDERED: BUPIVAcaine/PF 2.5mg/ml (0.25%) 10ml vial IJ ONE (10:31)
[2022-12-18] MEDS ORDERED: BUPIVAcaine/PF 2.5 mg/ml (0.25%) 30ml vial IJ ONE (10:31)
[2022-12-18 11:04] VITALS: BP 141/89
--- NOTE | 2022-12-18 11:04 | NUR ---
Received from OR via [facility], accompanied by Anesthesiologist and report given by JOSE Anesthesiologist. PATIENT AWAKE & ALERT, DENIES PAIN, V/S WNL, PIV 20G TO RIGHT HAND, LEFT WRIST DRESSING C/D/I. ICE AND ELEVATED LUE. Addendum: 12/18/22 at 1119 by Julio Rudd RN Amended: Links added.
[2022-12-18 11:10] VITALS: BP 134/79
[2022-12-18 11:20] VITALS: BP 145/86
[2022-12-18 11:30] VITALS: BP 149/84
--- NOTE | 2022-12-18 11:39 | NUR ---
ALL DISCHARGE CRITERIA HAS BEEN MET. VSS, PAIN AT A TOLERABLE LEVEL, ABLE TO SAFELY AMBULATE AND TRANSFER SELF. IV TAKEN OUT WITHOUT ANY COMPLICATIONS. ALL DISCHARGE INSTRUCTIONS COVERED WITH PATIENT AND ALL QUESTIONS ANSWERED. PATIENT TAKEN OUT VIA WHEELCHAIR WITH ALL BELONGINGS TO PERSONAL VEHICLE WHERE FAMILY DROVE PATIENT HOME. Addendum: 12/18/22 at 1152 by Julio Rudd RN Amended: Links added.
== END 2022-12-18 11:39 | disposition home or self-care (01) ==
LOC: PAS 07:00
PROVIDERS: ATTEND Orthopaedic Surgery Hand Surgery
DX: M18.12 Unilateral primary osteoarthritis of first carpometacarpal joint, left hand (principal); M65.312 Trigger thumb, left thumb; M19.011 Primary osteoarthritis, right shoulder; G47.30 Sleep apnea, unspecified; E66.01 Morbid (severe) obesity due to excess calories; Z68.39 Body mass index [BMI] 39.0-39.9, adult; K22.0 Achalasia of cardia; F11.90 Opioid use, unspecified, uncomplicated; Z79.899 Other long term (current) drug therapy; Z96.612 Presence of left artificial shoulder joint; Z96.611 Presence of right artificial shoulder joint; Z98.890 Other specified postprocedural states
CPT/HCPCS: 25310; 25447; 26055; 36415; 80053; 82948; 85025; J0690; J2250; J3010; J3490; J7030; J7120; Z7506; Z7508; Z7512; A4215; A4618; A7000